=== PATIENT | female | born 1985 | race Caucasian/White ===

== ENCOUNTER → 2016-04-01 | Outpatient (CLI) | payer BC ==
[~2016-04-01] MED LIST: IRON PO; MTR600X PO; OXYC-57 PO; PRENTAB26 PO
[2016-04-01 11:15] LABS: HEMATOCRIT 32.8 % (37-47)
[2016-04-01 11:30] LABS: GTGD 50 Grams
[2016-04-01 11:53] LABS: URINE APPEARANCE CLEAR (CLEAR); URINE BILIRUBIN NEG (NEG); URINE COLOR YELLOW; URINE EPITHELIAL CELL AUTO >30 /lpf (0-5); URINE NITRITE NEG (NEG); URINE PH 6.5 (4.5-7.5); UROBILINOGEN NEG (NEG)
[2016-04-01 11:55] LABS: MANUAL MICROSCOPIC REQUIRED? NO; REVIEW REQ? NO
== END | disposition home or self-care (01) ==
LOC: C.LAB1850 09:29
PROVIDERS: ATTEND Obstetrics & Gynecology
DX: Z34.83 Encounter for supervision of other normal pregnancy, third trimester (principal)

== ENCOUNTER → 2016-05-27 | Outpatient (CLI) | payer BC | END | disposition home or self-care (01) | LOC: C.LABSPEC 17:25 | PROVIDERS: ATTEND Obstetrics & Gynecology | DX: Z34.83 Encounter for supervision of other normal pregnancy, third trimester (principal) ==

== ENCOUNTER 2016-06-07 10:24 | Outpatient (CLI) | payer BC ==
[~2016-06-07 10:24] MED LIST changes: -MTR600X PO; -OXYC-57 PO
== END 2016-06-07 10:42 | disposition home or self-care (01) ==
LOC: C.OPB 10:24 → C.LD 10:30 → C.OPB 10:42 → EDSTATUS 06-24 10:22
PROVIDERS: ATTEND Obstetrics & Gynecology
DX: O36.8130 Decreased fetal movements, third trimester, not applicable or unspecified (principal); Z3A.37 37 weeks gestation of pregnancy

== ENCOUNTER 2016-06-20 08:06 | Inpatient (IN) | payer BC ==
[~2016-06-20] VITALS: Ht 160 cm; Wt 83.6 kg
[2016-07-01 08:41] VITALS: Ht 160 cm; Wt 83.6 kg
[2016-07-01] MEDS ORDERED: LACTATED RINGER'S 1000ML 500 ML IV PRN ×2 (09:14→11:08)
[2016-07-01] MEDS ORDERED: LACTATED RINGER'S 1000ML 1,000 ML IV PRN (09:14)
[2016-07-01] MEDS ORDERED: OXYTOCIN 30 UNITS/500ML NSS IV PRN ×2 (09:15→22:00)
[2016-07-01] MEDS: LACTATED RINGER'S 1000ML 1,000 ML IV SCH ×3 (09:27→18:05)
[2016-07-01 09:50] LABS: HEMATOCRIT 33.2 % (37-47); MEAN CELL VOLUME 81.8 fL (80-100); MEAN CORPUSCULAR HEMOGLOBIN 28.1 pg (25-34); MEAN PLATELET VOLUME 9.2 fL (7.4-10.4); PLATELET COUNT 166 K/uL (130-400); RED BLOOD COUNT 4.06 M/uL (4.2-5.4); WHITE BLOOD COUNT 9.48 K/uL (4.8-10.8)
[2016-07-01 10:09] LABS: MEAN CORPUSCULAR HGB CONC 34.3 g/dl (32-36)
[2016-07-01] MEDS ORDERED: BUPIVACAINE 0.25% 30 ML VIAL ONE (10:20)
[2016-07-01] MEDS ORDERED: EpHEDrine SULFATE INJ 50 MG/ML AMP ONE (10:20)
[2016-07-01] MEDS ORDERED: FENTANYL CITRATE INJ 50 MCG/1 ML 2 ML VIAL ONE (10:21)
[2016-07-01] MEDS ORDERED: FENTANYL 2MCG/ML ROPIV 1.25MG/ML 100ML BAG EPI ONE (10:24)
[2016-07-01] MEDS ORDERED: NALOXONE HCL INJ 1 MG in SODIUM CHLORIDE 0.9% 1000ML 1,000 ML IV PRN ×4 (11:08)
[2016-07-01] MEDS ORDERED: DiphenhydrAMINE HCL 50 MG/ML VIAL IV PRN (11:15)
[2016-07-01] MEDS ORDERED: ONDANSETRON INJ 2 MG/ML 2 ML VIAL IV PRN (11:15)
[2016-07-01] MEDS ORDERED: METOCLOPRAMIDE HCL INJ 20 MG in SODIUM CHLORIDE 0.9% 50ML 50 ML IV PRN (11:15)
[2016-07-01] MEDS ORDERED: EpHEDrine SULFATE INJ 50 MG/ML AMP IV PRN (11:15)
[2016-07-01] MEDS ORDERED: NALOXONE HCL INJ 0.4 MG/1 ML VIAL/CARP IV PRN (11:15)
[2016-07-01] MEDS ORDERED: NALBUPHINE HCL INJ 10 MG/ML AMP IV PRN (11:15)
[2016-07-01] MEDS ORDERED: PROMETHAZINE HCL INJ 25 MG in SODIUM CHLORIDE 0.9% 50ML 50 ML IV PRN (11:15)
[2016-07-01] MEDS: FENTANYL 2MCG/ML ROPIV 1.25MG/ML 100ML BAG EPI PRN ×3 (14:52→19:01)
[2016-07-01] MEDS ORDERED: CALCIUM CARBONATE 500 MG CHEWABLE PO PRN (18:00)
[2016-07-01] MEDS ORDERED: DIPHTHERIA/TETANUS/PERTUSSIS 0.5 ML SYR/VIAL IM. ONE (22:00)
[2016-07-01] MEDS ORDERED: SUPERCREAM 0.870 % 15GM JAR EXT PRN (22:00)
[2016-07-01] MEDS ORDERED: HYDROCORTISONE ACETATE 25 MG SUPP PR PRN (22:00)
[2016-07-01] MEDS ORDERED: BENZOCAINE 20% AER SPR 82.5 GM CAN EXT PRN (22:00)
[2016-07-01] MEDS ORDERED: ACETAMINOPHEN 325 MG TAB PO PRN (22:00)
[2016-07-01] MEDS ORDERED: LANOLIN OINT EXT PRN ×2 (22:00)
[2016-07-01] MEDS ORDERED: LACTATED RINGER'S 1000ML 1,000 ML IV SCH (22:00)
--- NOTE | 2016-07-01 22:15 | Anesthesia Procedure Note ---
Anesthesia Epidural Removal Nt Date & Time Jul 01, 2016 at 22:16 Vital Signs Pain Intensity: 2.0 Notes Mental Status: alert / awake / arousable, participated in evaluation Nausea / Vomiting: adequately controlled Pain: adequately controlled Airway Patency, RR, SpO2: stable & adequate BP & HR: stable & adequate Hydration State: stable & adequate Neuraxial Anesthesia: was administered Anesthetic Complications: no major complications apparent, pt satisfied with anesthetic care Epidural: removed without complications, with tip intact
[2016-07-02] MEDS: IBUPROFEN 600 MG TAB PO PRN ×4 (01:18→21:58)
[2016-07-02 04:30] VITALS: BP 110/77; PULSE 76; TEMP 36.5
[2016-07-02 06:31] LABS: HEMATOCRIT 30.2 % (37-47)
--- NOTE | 2016-07-02 07:36 | Progress Note ---
Subjective Jul 02, 2016. Subjective conversation w/ patient, physical exam Ambulation: ambulating normally Voiding: no voiding problems Passing Gas: Yes Diet Tolerance: Regular Diet Lochia: Moderate Feeding Type: Breast Feeding Review of Systems Constitutional: No chills, No fever Respiratory: No cough Cardiac: No chest pain Abdomen: No nausea, No vomiting Objective Vital Signs Date Time Temp Pulse Resp B/P Pulse Ox O2 Delivery O2 Flow Rate FiO2 07/02/16 04:30 Room Air 07/02/16 04:30 36.5 76 18 110/77 Room Air Physical Exam General Appearance: WELL-APPEARING, NO APPARENT DISTRESS Respiratory/Chest: no respiratory distress, no accessory muscle use Cardiovascular: no edema Abdomen: non tender, soft Fundus: Firm Extremities: no calf tenderness Laboratory Results Last 24 Hours Test 07/01/16 09:34 07/02/16 06:14 White Blood Count 9.48 K/uL Red Blood Count 4.06 M/uL Hemoglobin 11.4 g/dL 10.5 g/dL Hematocrit 33.2 % 30.2 % Mean Corpuscular Volume 81.8 fL Mean Corpuscular Hemoglobin 28.1 pg Mean Corpuscular Hemoglobin Concent 34.3 g/dl RDW Standard Deviation 42.6 fL RDW Coefficient of Variation 14.4 % Platelet Count 166 K/uL Mean Platelet Volume 9.2 fL Assessment and Plan Post- Day#: 1 Continue Routine Care: Routine yesterday, doing well this morning. Routine pp care.
--- NOTE | 2016-07-02 07:43 | DELIVERY SUMMARY ---
DATE OF OPERATION: 07/01/2016 PREOPERATIVE DIAGNOSIS: 1. [place] intrauterine at 41 weeks. 2. Induction of labor. POSTOPERATIVE DIAGNOSIS: Same. PROCEDURE: Spontaneous vaginal delivery. SURGEON: Dr. Jose. POULTRY SEXER: None. ESTIMATED BLOOD LOSS: 400 cc. FINDINGS: in the direct occiput anterior position. Placenta spontaneously intact with a 3-vessel cord. COMPLICATIONS: None. DISPOSITION: Stable to the recovery room. DESCRIPTION: Sheela is a 30-year-old 2 para 1 who presented for induction of labor due to post-term. She had received a Chris bulb the night before, induction was completed using Pitocin and artificial rupture of membranes with provision of an epidural for pain management. The patient reached complete dilation and was coached on pushing. I was called to the room for delivery. She brought the head to and delivered the head of the with no difficulty which restituted PACO. The shoulders then delivered with no difficulty followed by the remainder of the infant's body. The infant was placed on the maternal abdomen. The cord was doubly clamped and cut by the father of the baby. The placenta delivered spontaneously and was noted to be intact with a 3-vessel cord. A repair of a second-degree perineal laceration was undertaken in the usual fashion with 2-0 and 3-0 Vicryl. At the completion of repair the fundus was firm, well contracted, lochia was minimal and mother and infant were in good condition having tolerated delivery well. I attest to the content of the Intraoperative Record and any orders documented therein. Any exceptio ns are noted below.
[2016-07-02] MEDS: OXYCODONE/ACETAMINOPHEN 5-325 TAB PO PRN ×3 (08:40→23:04)
[2016-07-02] MEDS: FERROUS SULFATE 325 MG TAB PO SCH (08:42)
[2016-07-02] MEDS: DOCUSATE SODIUM 100 MG CAP PO SCH ×2 (08:42→20:05)
[2016-07-02] MEDS: PRENATAL VITAMIN TAB PO SCH (08:42)
[2016-07-02 09:27] VITALS: BP 100/67; PULSE 88; TEMP 36.5; O2SAT 97
[2016-07-02 12:12] VITALS: BP 102/70; PULSE 90; TEMP 36.6
[2016-07-02 16:39] VITALS: BP 105/66; PULSE 93; TEMP 36.6; O2SAT 96
[2016-07-02 20:00] VITALS: BP 111/69; PULSE 100; TEMP 36.5; O2SAT 97
[2016-07-02 23:00] VITALS: BP 108/71; PULSE 84; TEMP 36.6; O2SAT 96
[2016-07-03] MEDS: IBUPROFEN 600 MG TAB PO PRN ×3 (04:27→14:39)
[2016-07-03] MEDS: OXYCODONE/ACETAMINOPHEN 5-325 TAB PO PRN ×2 (06:41→11:07)
--- NOTE | 2016-07-03 06:41 | Progress Note ---
Subjective Jul 03, 2016. Subjective conversation w/ patient, physical exam Ambulation: ambulating normally Voiding: no voiding problems Passing Gas: Yes Diet Tolerance: Regular Diet Lochia: Small Feeding Type: Breast Feeding Review of Systems Constitutional: + problem reported (coccyx discomfort), No chills, No fever, No sweats Respiratory: No cough, No shortness of breath Cardiac: No chest pain, No claudication Objective Vital Signs Date Time Temp Pulse Resp B/P Pulse Ox O2 Delivery O2 Flow Rate FiO2 07/02/16 23:00 Room Air 07/02/16 23:00 36.6 84 16 108/71 96 Room Air 07/02/16 20:00 36.5 100 18 111/69 97 Room Air 07/02/16 16:39 36.6 93 16 105/66 96 Room Air 07/02/16 12:12 36.6 90 20 102/70 07/02/16 09:27 36.5 88 18 100/67 97 Room Air Physical Exam General Appearance: WELL-APPEARING, NO APPARENT DISTRESS Respiratory/Chest: lungs clear, no accessory muscle use Cardiovascular: regular rate, rhythm, no murmur Fundus: Firm, Non-Tender, Relation to Umbilicus (1 cm below) Assessment and Plan Post- Day#: 2 Continue Routine Care: s/p Day 2 - vitals reviewed and wnl - Hgb 10.5 yesterday - blood: A- (baby [place] -), GBS-, Rubella immune - encourage ambulation, encourage , and monitor lochia - patient counselled on discharge instructions - PATIENT TO BE DISCHARGED TODAY Resident Physician Supervision Note: I interviewed and examined the patient. Discussed with Dr. Diaz and agree with findings and plan as documented in the note. Any exceptions or clarifications are listed here: [None] Documented By: Americo Juarez
--- NOTE | 2016-07-03 06:42 | Discharge Instructions ---
Discharge Instructions Date of Service Jul 03, 2016. Admission Reason for Admission: Induction Discharge Discharge Diagnosis / Problem: Spontaneous Vaginal Delivery Discharge Goals Goal(s): Routine recovery after delivery Medications Continue Dispensed Medications: supercream, dermaplast, tucks, lansinoh Activity Recommendations Activity Limitations: per Instructions/Follow-up section . Instructions / Follow-Up Instructions / Follow-Up ACTIVITY RECOMMENDATIONS: * Gradual return to full activity over the next 2-3 weeks. * No lifting - nothing heavier than baby over the next 2-3 weeks. * Do not engage in vigorous exercise, sexual activity or sports until cleared by your physician. * Do not drive or operate any motorized equipment until cleared by your physician. * You may shower/bathe daily. MEDICATIONS: For discomfort or pain, you may use Acetaminophen (Tylenol), Ibuprofen (Advil), or Naproxen (Aleve) following the package directions. For constipation you may use Colace following the package directions. BREAST CARE: If you are not breast feeding: * Wear a supportive bra 24 hours a day for one to two weeks. * Avoid stimulating your breasts and nipples as much as possible during the first few weeks after delivery. * When taking a shower, have the warm water hit your back, not breasts. * When your breasts feel full, apply ice packs. Usually three to four times a day helps ease the discomfort. * Take a mild pain medication (Tylenol / Motrin) when you are uncomfortable. If breast feeding: * Use breast milk to lubricate nipples. Lansinoh cream may be used for sore nipples. You do not need to remove cream prior to breast feeding. If using a different brand of cream, check the label for directions regarding removal of cream prior to nursing. * Wear a supportive bra. * If having problems with breasts or breast feeding, call a political consultant or your health care provider. EPISIOTOMY CARE: After delivery, if you have an episiotomy (stitches), the following steps will ease discomfort and aid healing. * For the first 24 hours after delivery, place ice packs next to your episiotomy to help reduce swelling. * After the first 24 hour-period, sitz baths, either portable or in the tub, are suggested. A shower with a shower arm sprayed over the episiotomy may be comforting. * Shobha care should be done after each voiding and bowel movement. Squirt warm water from a plastic bottle over the perineum (region of the body between the anus and urinary opening) and pat dry. * Use Dermoplast to ease discomfort. Shake container. [place] directly over the episiotomy. Place a Tucks on a clean sanitary pad next to your episiotomy. SPECIAL CARE INSTRUCTIONS: When you are discharged from the hospital, it is important for you to follow the instructions listed below: * During the first week at home, you should be able to care for yourself and your baby. In addition, the usual light household activities are encouraged. * Limit your activities to the way you feel. Do not try to clean the house or move furniture. Be sensible. * If you actively engage in sports and have done so up until the time of your delivery, you may resume these activities as soon as you feel able. This may take up to one month or even longer. Use good judgment. * Continue to take your vitamins for at least six weeks after the of your baby. * Your diet need not be limited unless you were on a special diet before your delivery. Breast-feeding mothers need around 2500 calories per day and at least 64-80 ounces of fluid per day (8 to 10 glasses). * You should eat foods from the four major food groups. Crash diets or fad diets are to be avoided. Eating lean meats, fresh fruits and vegetables, low-fat dairy products, high fiber foods and a regular exercise program, will help you get back to your pre- weight without putting your health at risk. * Constipation is sometimes a problem after delivery. Take a mild laxative as needed. If breast feeding, Milk of Magnesia is acceptable to use. You may use a suppository or Fleets enema if no episiotomy. * A daily shower or tub bath is suggested. Be sure to thoroughly and gently dry the perineum. * A bloody vaginal discharge will usually continue until around four weeks post . A small amount of bleeding may continue for as long as six weeks. Vaginal discharge changes from the bright red bleeding after delivery to pink then brownish and finally yellowish-pink before becoming white and disappearing. * Bleeding may increase with activity. Your first period may come in 4-8 weeks. If you are breast feeding, your period may be delayed even longer. * [place] (sex) can begin whenever both you and your partner feel comfortable and do not have any form of genital infection. It is recommended that you wait at least six weeks for internal and external healing to occur. If you have questions, please talk to your health care practitioner. A condom should be used to prevent infection and . * Foreplay, gentle intercourse and lubrication is very important the first several times to prevent pain. A water-based lubricant such as K-Y jelly or Astroglide may be used. * If you have RH negative blood and your baby is RH positive, you will receive RHOGAM by injection prior to discharge. The nurse will give you a card to keep with you that has the date and place that you received RHOGAM after delivery. * During your care, you had a Rubella screen done to check for the presence of rubella antibodies in your blood. If your test was negative, you will receive a Rubella vaccine prior to discharge. This vaccine may cause a fever, soreness at the injection site and flu-like symptoms. If these symptoms persist, notify your health care practitioner. is not advised for one month after a Rubella vaccine. * Verbalizes understanding of car seat law as reviewed with patient nursing. * Car Seat hand-out given and reviewed with patient by nursing. * Shaken baby information reviewed with patient by nursing. Call you doctor if: * Heavy bleeding (saturating several pads an hour) or passing clots the size of your fist. * A fever >101 degrees F (38.3 degrees C) on two occasions four hours apart and /or chills. * Unusual pain in the pelvic or vaginal areas. * "Baby Blues" lasting longer than two weeks. If you have any questions or concerns, call your health care practitioner at . FOLLOW UP VISIT: * Please call the office at to schedule a 6 week examination. It is important you keep this appointment. It is important for you to make arrangements for either yearly or twice yearly check-ups thereafter. Current Hospital Diet Patient's current hospital diet: Regular OB Diet Discharge Diet Recommended Diet: Regular Diet Pending Studies Studies pending at discharge: no Medical Emergencies . Who to Call and When: Medical Emergencies: If at any time you feel your situation is an emergency, please call 911 immediately. . Non-Emergent Contact Non-Emergency issues call your: Primary Care Provider, [facility] . . "Provider Documentation" section prepared by Alan Diaz. VTE Core Measure Inpt VTE Proph given/why not?: Treatment not indicated
[2016-07-03] MEDS ORDERED: MTR600X PO (07:37)
[2016-07-03] MEDS ORDERED: OXYC-57 PO (07:37)
[2016-07-03] MEDS: FERROUS SULFATE 325 MG TAB PO SCH (07:52)
[2016-07-03] MEDS: DOCUSATE SODIUM 100 MG CAP PO SCH (07:52)
[2016-07-03] MEDS: PRENATAL VITAMIN TAB PO SCH (07:52)
[2016-07-03 08:35] VITALS: BP 129/89; PULSE 103; TEMP 36.5
[2016-07-03 15:30] VITALS: BP_DIAS 89; PULSE 103; TEMP 36.5
== END 2016-07-03 16:05 | disposition home or self-care (01) | DRG 775 ==
LOC: EDSTATUS 15:52 → C.LD 07-01 07:52 → C.OBG 07-02 01:22
PROVIDERS: ADMIT Obstetrics & Gynecology; ATTEND Obstetrics & Gynecology
PROC: 0KQM0ZZ Repair Perineum Muscle, Open Approach (ICD-10-PCS; principal; 2016-07-01)
PROC: 0U7C7ZZ Dilation of Cervix, Via Natural or Artificial Opening (ICD-10-PCS; principal; 2016-07-01)
PROC: 10907ZC Drainage of Amniotic Fluid, Therapeutic from Products of Conception, Via Natural or Artificial Opening (ICD-10-PCS; principal; 2016-07-01)
PROC: 10E0XZZ Delivery of Products of Conception, External Approach (ICD-10-PCS; principal; 2016-07-01)
PROC: 3E033VJ Introduction of Other Hormone into Peripheral Vein, Percutaneous Approach (ICD-10-PCS; principal; 2016-07-01)
DX: O48.0 Post-term pregnancy (principal); O70.1 Second degree perineal laceration during delivery; O99.62 Diseases of the digestive system complicating childbirth; K21.9 Gastro-esophageal reflux disease without esophagitis; O99.214 Obesity complicating childbirth; E66.9 Obesity, unspecified; Z68.32 Body mass index [BMI] 32.0-32.9, adult; Z37.0 Single live birth; Z3A.41 41 weeks gestation of pregnancy; Z79.899 Other long term (current) drug therapy

== ENCOUNTER 2016-06-30 19:57 | Outpatient (CLI) | payer BC ==
[~2016-06-30] VITALS: Ht 160 cm; Wt 83.5 kg
[2016-06-30 20:17] VITALS: Ht 160 cm; Wt 83.5 kg
== END 2016-06-30 22:52 | disposition home or self-care (01) ==
LOC: C.OPB 19:57 → C.LD 19:57 → C.OPB 22:52
PROVIDERS: ATTEND Obstetrics & Gynecology
DX: O34.43 Maternal care for other abnormalities of cervix, third trimester (principal); O48.0 Post-term pregnancy; Z3A.41 41 weeks gestation of pregnancy

== ENCOUNTER → 2017-03-12 | Outpatient (CLI) | payer BC ==
[~2017-03-12] MED LIST changes: +MTR600X PO; +OXYC-57 PO
[2017-03-14 01:49] LABS: CHLAMYDIA TRACH RNA*** NOT DETECTED (NOT DETECTED); GC (NEIS GONORRHOEAE)RNA** NOT DETECTED (NOT DETECTED)
== END | disposition home or self-care (01) ==
LOC: C.LABSPEC 10:58
PROVIDERS: ATTEND Physician Assistant
DX: Z30.430 Encounter for insertion of intrauterine contraceptive device (principal)